=== PATIENT | female | born 1990 | race African-American/Black ===

== ENCOUNTER 2018-12-06 13:42 | Emergency (ER) | payer MEDICAID, SELFPAY ==
[~2018-12-06] VITALS: Ht 170.2 cm; Wt 48.7 kg
[2018-12-06] MEDS ORDERED: CEFTRIAXONE 250 MG IM ONE (14:00)
[2018-12-06] MEDS ORDERED: DIPH,PERTUSS(ACELL),TET VAC/PF 0.5 ML IM-VACC ONE ×2 (14:00→15:25)
[2018-12-06] MEDS ORDERED: LIDOCAINE-MPF 1%, 5ML INFIL ONE (14:00)
[2018-12-06] MEDS ORDERED: AZITHROMYCIN 500 MG TABLET PO ONE (14:00)
[2018-12-06 14:50] LABS: ALBUMIN 3.6 g/dL (3.4-5.0); ANION GAP 5 mmol/L (5-15); CALCIUM 8.8 mg/dL (8.5-10.1); CHLORIDE 107 mmol/L (98-107); CREATININE 0.81 mg/dL (0.55-1.02)
[2018-12-06 15:06] LABS: BASOPHILS # (AUTO) 0.03 x10^3/uL (0-0.1); BASOPHILS % (AUTO) 1 % (0-1); EOSINOPHILS # (AUTO) 0.24 x10^3/uL (0-0.4); EOSINOPHILS % (AUTO) 4 % (1-7); LYMPHOCYTES # (AUTO) 1.26 x10^3/uL (1-3.4); LYMPHOCYTES % (AUTO) 22 % (22-44); MD SCAN; MEAN CORPUSCULAR HEMOGLOBIN 30.3 pg (27.0-34.8); MEAN CORPUSCULAR HGB CONC 31.5 g/dL (32.4-35.8); MEAN PLATELET VOLUME 7.9 fL (7.4-10.4); MONOCYTES # (AUTO) 0.31 x10^3/uL (0.2-0.8); MONOCYTES % (AUTO) 6 % (2-9); NEUTROPHILS # (AUTO) 3.81 x10^3/uL (1.8-6.8); NEUTROPHILS % (AUTO) 67 % (42-75); PLATELET COUNT 294 x10^3/uL (130-400); RED BLOOD COUNT 4.39 x10^6/uL (3.82-5.3); RED CELL DISTRIBUTION WIDTH 13.4 % (9.6-15.2)
[2018-12-06 15:22] LABS: MICROSCOPIC NOT IND
[2018-12-06 15:23] LABS: CULTURE INDICATED? NO
[2018-12-06] MEDS ORDERED: CEFTRIAXONE 250 MG ONE (15:24)
[2018-12-06] MEDS ORDERED: AZITHROMYCIN 250 MG TABLET ONE (15:24)
[2018-12-06] MEDS ORDERED: LIDOCAINE-MPF 1%, 5ML ONE (15:24)
--- NOTE | 2018-12-06 15:52 | NUR ---
PT. WAS MEDICATED WITH ABX ORDERED. Daniel LOPEZ AT THE BEDSIDE SUTURING THE PT.
--- NOTE | 2018-12-06 15:56 | NUR ---
PT.'S WOUND WAS IRRIGATED PRIOR TO BEING SUTURED. PT. 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 PT. IS RESTING AT THIS TIME.
[2018-12-06 16:15] VITALS: BP 146/102
--- NOTE | 2018-12-06 17:32 | NUR ---
PT.'S CLINICAL SCREEN AND ASSESSMENT WERE COMPLETED AT 1500. INFORMATION WAS ENTERED LATER.
== END 2018-12-06 17:34 | disposition left against medical advice (07) ==
LOC: ED 17:28
DX: S61.211A Laceration without foreign body of left index finger without damage to nail, initial encounter (principal); N93.9 Abnormal uterine and vaginal bleeding, unspecified; W26.0XXA Contact with knife, initial encounter; Y93.89 Activity, other specified; Y92.89 Other specified places as the place of occurrence of the external cause
CPT/HCPCS: 12041; 36415; 80048; 81003; 82040; 84703; 85025; 90471; 90715; 96372; 99284; J0696

== ENCOUNTER 2018-12-29 14:46 | Emergency (ER) | payer MEDICAID ==
[~2018-12-29] VITALS: Ht 167.6 cm; Wt 47.9 kg
[2018-12-29 14:51] VITALS: BP 122/89
[2018-12-29 15:39] LABS: HCG UR SG 1.041 (1.003-1.030)
[2018-12-29 15:45] LABS: MICROSCOPIC INDICATED
[2018-12-29 15:53] LABS: BASOPHILS # (AUTO) 0.06 x10^3/uL (0-0.1); BASOPHILS % (AUTO) 1 % (0-1); EOSINOPHILS # (AUTO) 0.18 x10^3/uL (0-0.4); EOSINOPHILS % (AUTO) 4 % (1-7); LYMPHOCYTES # (AUTO) 1.83 x10^3/uL (1-3.4); LYMPHOCYTES % (AUTO) 41 % (22-44); MD NO; MEAN CORPUSCULAR HEMOGLOBIN 30.5 pg (27.0-34.8); MEAN CORPUSCULAR HGB CONC 32.3 g/dL (32.4-35.8); MEAN CORPUSCULAR VOLUME 94.6 fL (80-100); MEAN PLATELET VOLUME 7.5 fL (7.4-10.4); MONOCYTES # (AUTO) 0.38 x10^3/uL (0.2-0.8); MONOCYTES % (AUTO) 9 % (2-9); NEUTROPHILS # (AUTO) 2.03 x10^3/uL (1.8-6.8); NEUTROPHILS % (AUTO) 45 % (42-75); PLATELET COUNT 286 x10^3/uL (130-400); RED BLOOD COUNT 4.11 x10^6/uL (3.82-5.3); RED CELL DISTRIBUTION WIDTH 13.3 % (9.6-15.2)
[2018-12-29 15:59] LABS: CULTURE INDICATED? NO
[2018-12-29 16:01] LABS: ALANINE AMINOTRANSFERASE 27 U/L (12-78); ANION GAP 7 mmol/L (5-15); CHLORIDE 107 mmol/L (98-107)
[2018-12-29 16:03] LABS: ALKALINE PHOSPHATASE 65 U/L (45-117); BILIRUBIN,TOTAL 0.7 mg/dL (0.2-1.0); CREATININE 0.83 mg/dL (0.55-1.02); TOTAL PROTEIN 7.1 g/dL (6.4-8.2)
[2018-12-29 16:22] LABS: CLUE CELLS PRESENT (NONE SEEN); WET PREP WBCS FEW (FEW)
[2018-12-29] MEDS ORDERED: metroNIDAZOLE 500 MG TABLET PO ONE (16:30)
[2018-12-29] MEDS ORDERED: metroNIDAZOLE 500 MG TABLET ONE (16:57)
--- NOTE | 2018-12-29 17:04 | NUR ---
Patient given discharge instructions and they have confirmed that they understand the instructions. Patient ambulatory with steady gait. Pt left with d/c paperwork, prescription, and all personal belongings. Pt encouraged to return to ED if symptoms worsen or change in condition.
--- NOTE | 2018-12-29 17:07 | NUR ---
Pt provided medication per [facility] and refused to be observed for 15 minutes after anesthesiology medical doctor. Pt states, "I am ready to go." Pt refused vital signs.
== END 2018-12-29 17:08 | disposition home or self-care (01) ==
LOC: ED 16:22
DX: N76.0 Acute vaginitis (principal)
CPT/HCPCS: 36415; 80053; 81001; 81025; 85025; 87210; 87491; 87591; 87808; 99283

== ENCOUNTER 2019-07-09 13:37 | Emergency (ER) | payer MEDICAID ==
[~2019-07-09] VITALS: Ht 170.2 cm; Wt 58.5 kg
--- NOTE | 2019-07-09 13:40 | NUR ---
PT CALLED TO TRIAGE. NO ANSWER.
--- NOTE | 2019-07-09 14:11 | NUR ---
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 PT PLAYING ON CELL PHONE WHILE WALKING. PT GIVEN A GOWN AND UA CUP. CHRISTY
[2019-07-09 15:15] LABS: MICROSCOPIC NOT IND
[2019-07-09 15:16] LABS: CULTURE INDICATED? NO
[2019-07-09 15:50] LABS: CLUE CELLS NONE SEEN (NONE SEEN); WET PREP WBCS FEW (FEW)
[2019-07-09] MEDS ORDERED: AZITHROMYCIN 500 MG TABLET PO ONE (16:00)
[2019-07-09] MEDS ORDERED: CEFTRIAXONE 250 MG IM ONE (16:00)
[2019-07-09] MEDS ORDERED: LIDOCAINE-MPF 1%, 2ML ONE (16:12)
[2019-07-09] MEDS ORDERED: AZITHROMYCIN 250 MG TABLET ONE (16:13)
[2019-07-09] MEDS ORDERED: CEFTRIAXONE 250 MG ONE ×2 (16:13→16:16)
[2019-07-09 17:31] LABS: HCG UR SG 1.031 (1.003-1.030)
[2019-07-09 17:40] VITALS: BP 124/74
== END 2019-07-09 17:42 | disposition home or self-care (01) ==
LOC: ED 16:51
DX: O26.891 Other specified pregnancy related conditions, first trimester (principal); N89.8 Other specified noninflammatory disorders of vagina; Z3A.12 12 weeks gestation of pregnancy; F17.200 Nicotine dependence, unspecified, uncomplicated
CPT/HCPCS: 81003; 81025; 87210; 87491; 87591; 87808; 96372; 99284; J0696

== ENCOUNTER 2019-08-09 10:22 | Emergency (ER) | payer MEDICAID ==
[~2019-08-09] VITALS: Ht 167.6 cm; Wt 60.0 kg
[2019-08-09 11:11] VITALS: BP 93/46
--- NOTE | 2019-08-09 11:26 | NUR ---
PT HAS CO OF INCREASED FREQUENCY OF URINATING. DENIES NV.. NO BACK OR FLANK PAIN. PT PROVIDING UA SAMPLE.
--- NOTE | 2019-08-09 11:40 | NUR ---
PT 17 WEEKS . PT LIFTED A SUITCASE, STRAINED LOWER GROIN REGION.
[2019-08-09 12:06] LABS: MICROSCOPIC NOT IND
[2019-08-09 12:08] LABS: BASOPHILS # (AUTO) 0.05 x10^3/uL (0-0.1); BASOPHILS % (AUTO) 1 % (0-1); EOSINOPHILS # (AUTO) 0.37 x10^3/uL (0-0.4); EOSINOPHILS % (AUTO) 5 % (1-7); LYMPHOCYTES # (AUTO) 1.49 x10^3/uL (1-3.4); LYMPHOCYTES % (AUTO) 18 % (22-44); MD NO; MEAN CORPUSCULAR HEMOGLOBIN 31.4 pg (27.0-34.8); MEAN CORPUSCULAR HGB CONC 33.1 g/dL (32.4-35.8); MEAN CORPUSCULAR VOLUME 94.8 fL (80-100); MEAN PLATELET VOLUME 7.7 fL (7.4-10.4); MONOCYTES # (AUTO) 0.76 x10^3/uL (0.2-0.8); MONOCYTES % (AUTO) 9 % (2-9); NEUTROPHILS # (AUTO) 5.62 x10^3/uL (1.8-6.8); NEUTROPHILS % (AUTO) 68 % (42-75); PLATELET COUNT 254 x10^3/uL (130-400); RED BLOOD COUNT 4.12 x10^6/uL (3.82-5.3); RED CELL DISTRIBUTION WIDTH 13.8 % (9.6-15.2)
[2019-08-09 12:16] LABS: ANION GAP 5 mmol/L (5-15); CALCIUM 8.8 mg/dL (8.5-10.1); CHLORIDE 105 mmol/L (98-107); CREATININE 0.62 mg/dL (0.55-1.02)
[2019-08-09 12:20] LABS: CULTURE INDICATED? NO
--- NOTE | 2019-08-09 12:57 | NUR ---
PT NOT IN ROOM. ELOPED
== END 2019-08-09 12:58 | disposition left against medical advice (07) ==
LOC: ED 12:52
DX: O20.9 Hemorrhage in early pregnancy, unspecified (principal)
CPT/HCPCS: 36415; 76815; 80048; 81003; 82040; 84702; 85025; 99284